=== PATIENT | female | born 1965 | race Caucasian/White ===

== ENCOUNTER 2017-04-03 21:16 | Emergency (ER) | payer OTHER ==
[~2017-04-03] VITALS: Ht 162.6 cm; Wt 86.6 kg
[2017-04-03 21:20] VITALS: BP 134/83
--- NOTE | 2017-04-03 21:28 | NUR ---
Patient ambulated to bed 06.
--- NOTE | 2017-04-03 21:36 | NUR ---
51 Y/O F W/C/O LOWER ABD PAIN X 4 DAYS. PT STATES HAS A HX OF FIBROIDS AND GOT HER GALLBLADDER REMOVED X 1 MTH AGO. NO S/S OF DISTRESS NOTED.
--- NOTE | 2017-04-03 21:42 | NUR ---
Dr. Bose evaluating patient at bedside. PA student at bedside.
[2017-04-03] MEDS ORDERED: KETOROLAC 60 MG/2 ML VIAL IM ONE (21:45)
--- NOTE | 2017-04-03 22:07 | NUR ---
Patient back from XRAY via wheelchair per tech.
--- NOTE | 2017-04-03 22:15 | NUR ---
Patient discharged with v/s stable. Written and verbal after care instructions given and explained. Patient alert, oriented and verbalized understanding of instructions. Ambulatory with steady gait. All questions addressed prior to discharge. ID band removed. Patient advised to follow up with PMD. Rx of MOTRIN 800MG, MIRALAX given. Patient educated on indication of medication including possible reaction and side effects. Opportunity to ask questions provided and answered.
[2017-04-03 23:02] VITALS: BP 132/81
== END 2017-04-03 22:15 | disposition home or self-care (01) ==
LOC: MED 21:16
DX: R10.33 Periumbilical pain (principal); Z88.1 Allergy status to other antibiotic agents; Z90.49 Acquired absence of other specified parts of digestive tract
CPT/HCPCS: 74000; 81002; 81025; 96372; 99283; J1885

== ENCOUNTER 2018-02-26 14:28 | Emergency (ER) | payer OTHER ==
[~2018-02-26] VITALS: Ht 154.9 cm; Wt 73.0 kg
[2018-02-26 14:35] VITALS: BP 123/76
--- NOTE | 2018-02-26 14:37 | NUR ---
ASSUMED CARE OF PT AT THIS TIME. C/O GENERAL BODY ACHES, COUGH AND COLD SYMPTOMS. DENIES N/V/D; SKIN IS PINK/WARM/DRY; AAOX4 WITH EVEN AND STEADY GAIT; LUNGS CLEAR BL; HR EVEN AND REGULAR; PATIENT STATES PAIN OF 8/10 AT THIS TIME; VSS; PATIENT POSITIONED FOR COMFORT; HOB ELEVATED; BEDRAILS UP X2; BED DOWN. ER MD MADE AWARE OF PT STATUS. WILL CONTINUE TO MONITOR.
--- NOTE | 2018-02-26 16:37 | NUR ---
Patient appears to be resting comfortably in bed, arousable to voice. Vital Signs within normal limits. Respirations even and unlabored.
[2018-02-26 17:25] VITALS: BP 140/89
--- NOTE | 2018-02-26 17:26 | NUR ---
Patient discharged with v/s stable. Written and verbal after care instructions given and explained. Patient alert, oriented and verbalized understanding of instructions. Ambulatory with steady gait. All questions addressed prior to discharge. ID band removed. Patient advised to follow up with PMD. Rx of TAMIFLU, PROMETHAZINE given. Patient educated on indication of medication including possible reaction and side effects. Opportunity to ask questions provided and answered.
== END 2018-02-26 17:26 | disposition home or self-care (01) ==
LOC: MED 14:28
DX: J11.1 Influenza due to unidentified influenza virus with other respiratory manifestations (principal); Z88.1 Allergy status to other antibiotic agents
CPT/HCPCS: 36415; 87081; 87804; 99284

== ENCOUNTER 2018-06-28 20:22 | Emergency (ER) | payer OTHER ==
[~2018-06-28] VITALS: Ht 160 cm; Wt 90.4 kg
[2018-06-28 20:25] VITALS: BP 165/96
--- NOTE | 2018-06-28 20:57 | NUR ---
PT PRESENTS TO ED WITH LEFT SIDE CHEST PRESSURE RADIATING TO RIGHT SHOULDER. PT STATES PAIN AT ITS WORST IS 6/10 BUT PAIN IS 3/10 AT THIS TIME. PT STAETS MILD SOB WITH CHEST PAIN. PT STATES PAIN ON EXERTION. PT STATES SHE IS RELAXED AND FEELING BETTER IN ER BED WITH MINIMAL PAIN OF 3/10 AND NO SOB OR DYSPNEA. A&OX4. POSITIONED IN BED FOR COMFORT. SIDE RAILS UP X2. VSS. ER MD AWARE. CONTINUE TO MONITOR.
--- NOTE | 2018-06-28 20:57 | NUR ---
PT AMBUYLATED TO BED 7 WITH VSS.
[2018-06-28] MEDS ORDERED: KETOROLAC 60 MG/2 ML VIAL IM ONE (22:05)
[2018-06-28 23:22] VITALS: BP 130/88
== END 2018-06-28 23:22 | disposition home or self-care (01) ==
LOC: MED 20:22
DX: M79.601 Pain in right arm (principal); R07.89 Other chest pain; Z88.1 Allergy status to other antibiotic agents; Z90.49 Acquired absence of other specified parts of digestive tract
CPT/HCPCS: 93005; 96372; 99283; J1885

== ENCOUNTER 2018-08-22 01:45 | Inpatient (IN) | payer OTHER ==
[~2018-08-22] VITALS: Ht 162.6 cm; Wt 89.8 kg
[2018-08-22 01:45] VITALS: BP 151/67
--- NOTE | 2018-08-22 01:45 | NUR ---
53/F CAME IN W C/O CHEST PAIN, NONRADIATING, SINCE THIS AM. ALSO REPORTS SOB. LUNG SOUNDS CLEAR, 18RR EVEN AND UNLABORED.ABLE TO SPEAK FULL LENGTH WITHOUT DIFFICULTY. HEART SOUNDS REGULAR. DENIES N/V, COUGH. SKIN SIGNS NORMAL. PT STATES " I HAD HYSTERECTOMY ON FRIDAY AND THEY CALLED ME THAT MY EKG CAME BACK ABNORMAL". PMH: HTN, HLD
[2018-08-22] MEDS ORDERED: ASPIRIN 325 MG TAB PO ONE (02:10)
[2018-08-22] MEDS ORDERED: NITROGLYCERIN 0.4 MG TAB SL ONE (02:10)
[2018-08-22 02:59] LABS: ANION GAP 10.3 (8-16); CARBON DIOXIDE 29.3 mmol/L (21-32); POTASSIUM 3.6 mmol/L (3.5-5.1)
[2018-08-22 03:05] LABS: ALBUMIN 3.9 g/dL (3.4-5.0); TOTAL BILIRUBIN 0.2 mg/dL (0.0-1.0)
[2018-08-22 03:08] LABS: CREATINE KINASE MB 0.7 ng/mL (0-3.6)
--- NOTE | 2018-08-22 03:21 | NUR ---
Dr. Iyer evaluating patient at bedside.
[2018-08-22 03:45] LABS: HEMATOCRIT 50.7 % (36-48); HEMOGLOBIN 9.5 g/dL (12.0-16.0); MEAN CORPUSCULAR HEMOGLOBIN 16 pg (27-31); MEAN CORPUSCULAR VOLUME 87.3 fL (80-94); RED BLOOD CELL COUNT(AUTO) 5.81 MIL/uL (4.20-5.40); WHITE BLOOD COUNT (AUTO) 4.3 K/uL (4.8-10.8)
[2018-08-22 03:46] LABS: EOSINOPHILS # (AUTO) 0.1 K/uL (0-0.4); EOSINOPHILS % (AUTO) 2.5 % (0.0-4.0); LYMPHOCYTES # (AUTO) 1.7 K/uL (2.5-16.5); LYMPHOCYTES % (AUTO) 40.4 % (20.5-51.1); MEAN CORPUSCULAR HGB CONC 19 g/dL (33-37); MONOCYTES # (AUTO) 0.4 K/uL (0.8-1.0); MONOCYTES % (AUTO) 9.7 % (1.7-9.3); NEUTROPHILS # (AUTO) 2.1 K/uL (1.8-7.7); NEUTROPHILS % (AUTO) 46.4 % (42.2-75.2); PLATELET COUNT (AUTO) 321 K/uL (140-450); RED CELL DISTRIBUTION WIDTH 11.6 % (11.6-13.7)
--- NOTE | 2018-08-22 04:00 | NUR ---
Patient appears to be resting comfortably in bed. Vital Signs within normal limits. Respirations even and unlabored.
[2018-08-22] MEDS ORDERED: LISI10TA11 PO (04:09)
[2018-08-22] MEDS ORDERED: ASPI81CT89 PO (04:09)
[2018-08-22] MEDS ORDERED: ATOR20TA PO (04:09)
--- NOTE | 2018-08-22 05:59 | NUR ---
Patient will be admitted to [facility]. Admited to TELE. Will go to room 104A. Belongings list completed. Report to YASMIN POSEY.
--- NOTE | 2018-08-22 06:05 | NUR ---
RECD FROM ER VIA ZAK, MONCHO, A/OX4. WITH CHIEF COMPLAINT OF CHEST PAIN. SALINE LOCK AT THE LEFT AC G20, PATENT AND INTACT. VS TAKEN, STABLE. DENIES CHEST PAIN AT THIS TIME, WAS MEDICATED IN ER WITH ASA AND NITROGLYCERIN. MRSA TEST DONE. MADE COMFORTABLE IN BED, ORIENTED TO HOSPITAL SETTING. WILL ENDORSE TO AM NURSE FOR ADMISSION.
[2018-08-22] MEDS ORDERED: KCL 20 MEQ/WATER INJ PREMIX 200 ML IV ONE (07:30)
[2018-08-22] MEDS ORDERED: POTASSIUM CHLORIDE 10 MEQ TABER PO ONE (07:30)
--- NOTE | 2018-08-22 07:30 | NUR ---
RECEIVED PT REPORT FROM MARKETING DEVELOPMENT REPRESENTATIVE RN. PT IS SLEEPING, EASILY AROUSED, OX4. DENIES PAIN AT THIS TIME. IV LEFT AC 18G, PATENT AND INTACT. INTRODUCED SELF, ORIENTED PT TO ROOM. ON TELE MONITORING. WILL CONTINUE TO MONITOR.
[2018-08-22 08:00] VITALS: BP 105/73
--- NOTE | 2018-08-22 08:15 | NUR ---
SPOKE WITH DR CABEZAS, SAID HE WILL SEE THE PT AND REVIEW HER HOME MEDS.
--- NOTE | 2018-08-22 10:40 | NUR ---
URINE SPECIMEN COLLECTED AND SENT TO LAB.
--- NOTE | 2018-08-22 11:23 | NUR ---
PATIENT HAS BEEN SCREENED AND CATEGORIZED MODERATE NUTRITION RISK. PATIENT WILL BE SEEN WITHIN 3-5 DAYS OF ADMISSION. 08/25/18 08/27/18 STORMY MCFARLAND MBA, RD
[2018-08-22 12:00] VITALS: BP 138/87
[2018-08-22 12:20] LABS: BARBITURATE, URINE NEG. ng/ml (NEG <=200); BENZODIAZEPINE, URINE NEG. ng/mL (NEG <=200); CANNABINOID, URINE NEG. ng/mL (NEG <=50); COCAINE, URINE NEG. ng/mL (NEG <=300); OPIATE, URINE NEG. ng/mL (NEG <=2000); PHENCYCLIDINE SCREEN,URINE NEG. ng/mL (NEG <=25)
--- NOTE | 2018-08-22 13:58 | NUR ---
PAGED DR CABEZAS REGARDING HOME MED REVIEW, WAITING FOR CALL BACK.
--- NOTE | 2018-08-22 14:20 | NUR ---
SPOKE WITH DR CABEZAS, WILL REVIEW PT'S MEDICATION.
[2018-08-22 16:00] VITALS: BP 122/75
--- NOTE | 2018-08-22 19:20 | NUR ---
ENDORSED PT TO COMMUNITY HEALTH ADVOCATE RN. PT IN STABLE CONDITION. WAITING TO BE SEEN BY RESTAURANT AND BAR MANAGER.
--- NOTE | 2018-08-22 19:20 | NUR ---
RECEIVED REPORT FROM DAY SHIFT NURSE, LILIAN, AT PT BEDSIDE. PT IN STABLE CONDITION. PT FAMILY IS AT BEDSIDE. PT IS AAOX4. PT IS ON RA. IV ACCESS IN L AC 18G SALINE LOCKED. IV IS PATENT AND INTACT. PT SKIN IS INTACT. PT HAS NO C/O PAIN AT THIS TIME. BED IS LOCKED, LOW POSITION WITH SIDE RAILS UP X2. CALL LIGHT IS WITHIN REACH. BOARD UPDATED. WILL CONTINUE TO MONITOR PT.
[2018-08-22 20:00] VITALS: BP 125/74
[2018-08-22] MEDS ORDERED: amLODIPine 5 MG TAB PO SCH (21:00)
--- NOTE | 2018-08-22 21:53 | NUR ---
APPLIED ORDERED NITRO-BID. EXPLAINED TO PT SOME SIDE EFFECTS OF THE MEDICATION INCLUDING RAWLS AND DIZZINESS. TOLD PT TO LET ME KNOW IF SHE EXPERIENCES ANY RAWLS OR DIZZINESS AND IF SHE NEEDS TO GET UP TO USE THE RESTROOM TO USE HER CALL LIGHT AND TO LET ME KNOW. PT VERBALIZED UNDERSTANDING. WILL CONTINUE TO MONITOR PT. Addendum: 08/22/18 at 2156 by Lenka Miller RN PER DR BOYER, WILL HOLD NORVASC AT THIS TIME. WANTS TO SEE IF NITRO-BID WORKS FIRST. IF NITRO-BID CAUSES PT RAWLS ORDERED TO ADMINISTER NORVASC AND REMOVE NITRO-BID.
[2018-08-22] MEDS ORDERED: NITROGLYCERIN 2% 1 GM PKT TP SCH (22:00)
--- NOTE | 2018-08-22 22:00 | NUR ---
ASSISTED PT UP TO BATHROOM. PT TOLERATED WELL. PT NOW BACK IN BED. ALL OTHER NEEDS ARE MET AT THIS TIME.
--- NOTE | 2018-08-22 23:00 | NUR ---
PT TOLERATED NITRO BID WELL. NO COMPLAINTS OF CHEST PAIN, HEADACHE OR DIZZINESS. PER MD REQUEST, NORVASC NON ADMINISTERED. WILL CONTINUE TO MONITOR PT.
[2018-08-23] VITALS: BP 108/69
--- NOTE | 2018-08-23 00:03 | NUR ---
PT VS WITHIN NORMAL LIMITS. ASSISTED PT UP TO RESTROOM. PT NOW BACK IN BED WITH NO SIGNS OR SYMPTOMS OF DISTRESS. CALL LIGHT IS WITHIN REACH. BED ALARM ON. PT AGREED TO CALL NEXT TIME BATHROOM ASSISTANCE IS NEEDED. WILL CONTINUE TO MONITOR PT.
--- NOTE | 2018-08-23 00:31 | NUR ---
SCHEDULED NITRO-BID NOT ADMINISTERED D/T TOO CLOSE TO PREVIOUS DOSE GIVEN. PT HAS NO C/O OF CHEST PAIN AT THIS TIME. NO SIGNS OR SYMPTOMS OF DISTRESS. WILL CONTINUE TO MONITOR.
--- NOTE | 2018-08-23 02:35 | NUR ---
PT ASLEEP IN BED. NO SIGNS OR SYMPTOMS OF DISTRESS. WILL CONTINUE TO MONITOR.
[2018-08-23 04:00] VITALS: BP 121/87
--- NOTE | 2018-08-23 04:19 | NUR ---
PT C/O HEADACHE. PAGED MD FOR ORDERS.
[2018-08-23] MEDS ORDERED: ACETAMINOPHEN 325 MG TAB PO PRN (05:05)
[2018-08-23] MEDS: NITROGLYCERIN 2% 1 GM PKT TP SCH ×4 (05:28→18:00)
--- NOTE | 2018-08-23 05:28 | NUR ---
PT C/O HEADACHE. TYLENOL GIVEN. NITRO-BID NOT ADMINISTERED D/T PT HEADACHE. PT HAS NO C/O CHEST PAIN AT THIS TIME. ASSISTED PT UP TO REST ROOM. PT NOW BACK IN BED. PT TOLERATED WELL. ALL NEEDS ARE MET. WILL CONTINUE TO MONITOR PT.
--- NOTE | 2018-08-23 07:25 | NUR ---
RECEIVED REPORT FROM HYBRID CAR MECHANIC NURSE AT PT BEDSIDE. PT IS AAOX4. NO S/S OF ACUTE DISTRESS ON RA. DENIES ANY PAIN AT THIS TIME. IV ACCESS IN L AC 18G, SL, PATENT AND INTACT. PT SKIN IS INTACT. PT HAS NO C/O PAIN AT THIS TIME. BED IS LOCKED AND LOWEST POSITION CALL LIGHT IS WITHIN REACH. BOARD UPDATED. WILL CONTINUE TO MONITOR.
--- NOTE | 2018-08-23 07:30 | NUR ---
ENDORSED PT TO DAY SHIFT NURSE FOR CONTINUITY OF CARE. PT IN STABLE CONDITION.
[2018-08-23 08:00] VITALS: BP 117/68
[2018-08-23] MEDS ORDERED: ATORVASTATIN 20 MG TAB PO SCH (09:00)
[2018-08-23] MEDS ORDERED: AMLO5TAB4 PO (10:05)
[2018-08-23 12:00] VITALS: BP 122/77
--- NOTE | 2018-08-23 12:55 | NUR ---
PT STATED CHEST PAIN COMES AND GOES, FEELS LIKE SQUEEZING, 2/10 AT THIS TIME. NITROGLYCERIN PATCHY GIVEN. MADE PT AWARE THAT HEADACHE IS A MAJOR SIDE EFFECTS OF THE MEDICATION, USE CALL LIGHT IF SHE EXPERIENCING BAD HEADACHE.
--- NOTE | 2018-08-23 13:22 | NUR ---
DR ESPAÑA CALLED, SHE SAID SHE WILL COME TO SEE THE PT IN ONE HR.
[2018-08-23] MEDS ORDERED: PANT40EC PO (14:25)
[2018-08-23] MEDS ORDERED: IBUP-2213 PO (14:25)
[2018-08-23 16:00] VITALS: BP 129/83
--- NOTE | 2018-08-23 19:10 | NUR ---
RECEIVED REPORT FROM DAY SHIFT NURSE, LILIAN, AT PT BEDSIDE. PT IN STABLE CONDITION. PT FAMILY IS AT BEDSIDE. DR. BOYER JUST FINISHED SPEAKING WITH PT. PT IS AAOX4. PT IS ON RA. IV ACCESS IN L AC 18G SALINE LOCKED. IV IS PATENT AND INTACT. PT SKIN IS INTACT. PT HAS NO C/O 3/10 PAIN IN BACK OF HEAD, HEADACHE. PER DR. BOYER REQUEST NITRO-BID REMOVED BY DAY SHIFT NURSE. BED IS LOCKED, LOW POSITION WITH SIDE RAILS UP X2. CALL LIGHT IS WITHIN REACH. BOARD UPDATED. WILL CONTINUE TO MONITOR PT.
--- NOTE | 2018-08-23 19:10 | NUR ---
ENDORSED PT TO FOOD PRODUCTION MANAGER RN. PT IN STABLE CONDITION.
[2018-08-23] MEDS ORDERED: COL.6 GT (19:40)
[2018-08-23 20:00] VITALS: BP 144/90
--- NOTE | 2018-08-23 20:35 | NUR ---
PT DISCHARGED FROM UNIT. PT ASSISTED OFF UNIT AND TO CAR VIA WHEELCHAIR. PT IN STABLE CONDITION. PT HAS DISCHARGE PAPERWORK AND ALL BELONGINGS WITH HER. DISCHARGE PAPERWORK WAS REVIEWED AND SIGNED. PT VERBALIZED UNDERSTANDING TO DISCHARGE INSTRUCTIONS.
--- NOTE | 2018-08-24 08:11 | NUR ---
RETRO FAXED ER REPORT, H&P, CONSULT TO [facility] [phone] NO DISCHARGE SUMMARY.
--- NOTE | 2018-08-25 07:29 | NUR ---
DISCHARGE SUMMARY FAXED TO [facility] [phone]
== END 2018-08-23 20:35 | disposition home or self-care (01) | DRG 207 ==
LOC: MED 01:45 → MTU 05:30
PROVIDERS: ADMIT Hospitalist; ATTEND Hospitalist
DX: I30.9 Acute pericarditis, unspecified (principal); E66.01 Morbid (severe) obesity due to excess calories; E78.5 Hyperlipidemia, unspecified; I10 Essential (primary) hypertension; Z68.34 Body mass index [BMI] 34.0-34.9, adult; Z90.49 Acquired absence of other specified parts of digestive tract; Z88.1 Allergy status to other antibiotic agents
CPT/HCPCS: 36415; 71045; 80053; 80305; 82550; 82553; 83690; 84484; 85025; 87081; 99285; Q0092

== ENCOUNTER 2019-04-26 23:25 | Emergency (ER) | payer OTHER ==
[~2019-04-26] VITALS: Ht 162.6 cm; Wt 86.2 kg
[~2019-04-26 23:25] MED LIST: AMLO5TAB6 PO; ASPI-1718 PO; ATOR20TA PO; COL.6 GT; IBUP-2213 PO; PANT40EC PO
[2019-04-26 23:37] VITALS: BP 143/90
--- NOTE | 2019-04-26 23:40 | NUR ---
TO LOBBY A/W BED AMBULATORY
--- NOTE | 2019-04-27 01:12 | NUR ---
PT TO ER BED 2.
--- NOTE | 2019-04-27 01:12 | NUR ---
PATIENT PRESENTS TO ED WITH C/O SOB AND COUGH. PT STATES SHE HAS BEEN FEELING SOB ON AND OFF FOR ABOUT 1 MONTH. DENIES N/V/D; SKIN IS PINK/WARM/DRY; AAOX4 WITH EVEN AND STEADY GAIT; EXPIRATORY WHEEZING TO BL UPPER LOBES. PATIENT STATES PAIN OF 0/10 AT THIS TIME; VSS; PATIENT POSITIONED FOR COMFORT; HOB ELEVATED; BEDRAILS UP X2; BED DOWN. ER MD MADE AWARE OF PT STATUS.
--- NOTE | 2019-04-27 02:55 | NUR ---
DR ALVARENGA EXAMINING PATIENT AT THIS TIME.
[2019-04-27] MEDS ORDERED: ALBUTEROL SULFATE/IPRATROPIU 3 ML SOL IH ONE (03:00)
[2019-04-27] MEDS ORDERED: predniSONE 20 MG TAB PO ONE (03:00)
[2019-04-27] MEDS ORDERED: ALBUTEROL 0.083% 2.5 MG/3 ML NEBU INH ONE (03:00)
[2019-04-27] MEDS ORDERED: KETOROLAC 60 MG/2 ML VIAL IM ONE (03:00)
--- NOTE | 2019-04-27 03:23 | NUR ---
RT AT BEDSIDE.
[2019-04-27 04:16] VITALS: BP 131/85
--- NOTE | 2019-04-27 04:16 | NUR ---
Patient discharged with v/s stable. Written and verbal after care instructions given and explained. Patient alert, oriented and verbalized understanding of instructions. Ambulatory with steady gait. All questions addressed prior to discharge. ID band removed. Patient advised to follow up with PMD. Rx of MOTRIN 800MG, PREDNISONE 20MG, ALBUTEROL INHALER given. Patient educated on indication of medication including possible reaction and side effects. Opportunity to ask questions provided and answered.
== END 2019-04-27 04:16 | disposition home or self-care (01) ==
LOC: MED 23:25
DX: R05 Cough (principal); R06.02 Shortness of breath; M54.5 Low back pain; I10 Essential (primary) hypertension; E78.5 Hyperlipidemia, unspecified; Z90.49 Acquired absence of other specified parts of digestive tract; Z79.82 Long term (current) use of aspirin; Z79.899 Other long term (current) drug therapy; Z88.1 Allergy status to other antibiotic agents; Z90.710 Acquired absence of both cervix and uterus
CPT/HCPCS: 71045; 81002; 94640; 94760; 96372; 99283; J1885; J7512; J7613; J7620; Q0092

== ENCOUNTER 2019-06-09 01:49 | Emergency (ER) | payer OTHER ==
[~2019-06-09] VITALS: Ht 162.6 cm; Wt 89.8 kg
[2019-06-09 01:55] VITALS: BP 129/81
--- NOTE | 2019-06-09 01:55 | NUR ---
54/F PRESENTS TO ED, C/O ANAL PAIN, X4 DAYS. REPORTS CONSTIPATION X2 WEEKS. LBM YESTERDAY, REPORTS HARD STOOL. PT WITH HEMORRHOIDS, DENIES BLEEDING. PT AWAKE AND ALERT, SKIN NORMAL WARM AND DRY, RR EVEN AND UNLABORED. HX HEMORRHOIDS, HTN, HLD, HYSTERECTOMY RX ATORVASTATIN, HTN MEDS, ASPIRIN OTC TYLENOL, HEMORRHOID CREAM WITHOUT RELIEF.
[2019-06-09] MEDS ORDERED: KETOROLAC 60 MG/2 ML VIAL IM ONE (02:15)
[2019-06-09 02:43] VITALS: BP 129/81
--- NOTE | 2019-06-09 02:43 | NUR ---
Patient discharged with v/s stable. Written and verbal after care instructions given and explained. Patient alert, oriented and verbalized understanding of instructions. Ambulatory with steady gait. All questions addressed prior to discharge. ID band removed. Patient advised to follow up with PMD. Rx of MOTRIN, ANUSOL CREAM, MIRALAX given. Patient educated on indication of medication including possible reaction and side effects. Opportunity to ask questions provided and answered.
== END 2019-06-09 02:43 | disposition home or self-care (01) ==
LOC: MED 01:49
DX: K64.9 Unspecified hemorrhoids (principal); K59.00 Constipation, unspecified; I10 Essential (primary) hypertension; E78.00 Pure hypercholesterolemia, unspecified; Z88.1 Allergy status to other antibiotic agents; Z79.899 Other long term (current) drug therapy; Z79.82 Long term (current) use of aspirin; Z79.1 Long term (current) use of non-steroidal anti-inflammatories (NSAID); Z90.49 Acquired absence of other specified parts of digestive tract; Z90.710 Acquired absence of both cervix and uterus
CPT/HCPCS: 96372; 99283; J1885

== ENCOUNTER 2022-09-26 00:55 | Emergency (ER) | payer OTHER ==
[~2022-09-26] VITALS: Ht 162.6 cm; Wt 83.9 kg
[~2022-09-26 00:55] MED LIST changes: +AMLO-3 PO; -AMLO5TAB6 PO; -ASPI-1718 PO; +ASPI-1822 PO; -COL.6 GT; +COLC-30 GT
[2022-09-26 01:02] VITALS: BP 143/90
--- NOTE | 2022-09-26 01:06 | NUR ---
pt to lobby
[2022-09-26] MEDS ORDERED: ASPIRIN 325 MG TAB PO ONE (01:35)
--- NOTE | 2022-09-26 01:45 | NUR ---
PT TO XR
[2022-09-26 02:16] LABS: BASOPHILS # (AUTO) 0.1 K/uL (0.00-0.22); EOSINOPHILS # (AUTO) 0.1 K/uL (0-0.4); EOSINOPHILS % (AUTO) 2.5 % (0.0-4.0); HEMATOCRIT 36.5 % (36-48); HEMOGLOBIN 12.3 g/dL (12.0-16.0); LYMPHOCYTES # (AUTO) 2.1 K/uL (2.5-16.5); LYMPHOCYTES % (AUTO) 37.5 % (20.5-51.1); MEAN CORPUSCULAR HEMOGLOBIN 29 pg (27-31); MEAN CORPUSCULAR HGB CONC 34 g/dL (33-37); MEAN CORPUSCULAR VOLUME 85.6 fL (80-94); MONOCYTES # (AUTO) 0.5 K/uL (0.8-1.0); MONOCYTES % (AUTO) 9.1 % (1.7-9.3); NEUTROPHILS # (AUTO) 2.8 K/uL (1.8-7.7); NEUTROPHILS % (AUTO) 49.9 % (42.2-75.2); PLATELET COUNT (AUTO) 261 K/uL (140-450); RED BLOOD CELL COUNT(AUTO) 4.26 MIL/uL (4.20-5.40); RED CELL DISTRIBUTION WIDTH 13.1 % (11.6-13.7); WHITE BLOOD COUNT (AUTO) 5.5 K/uL (4.8-10.8)
[2022-09-26 02:49] LABS: ASPARTATE AMINOTRANSFERASE 25 U/L (15-37); CARBON DIOXIDE 31.9 mmol/L (21-32); CHLORIDE 103 mmol/L (98-107); CREATININE 0.8 mg/dL (0.6-1.3); GFR ARICAN-AMERICAN 95 mL/min (>90); GLUCOSE 93 mg/dL (74-106); POTASSIUM 3.9 mmol/L (3.5-5.1); SODIUM SERUM 143 mmol/L (136-145); TOTAL BILIRUBIN 0.3 mg/dL (0.0-1.0); UREA NITROGEN, BLOOD 17 mg/dL (7-18)
--- NOTE | 2022-09-26 04:29 | NUR ---
Patient appears to be resting comfortably in bed. Vital Signs within normal limits. Respirations even and unlabored.
[2022-09-26] MEDS ORDERED: ACETAMINOPHEN EXTRA STRENGTH 500 MG TAB PO ONE (04:45)
--- NOTE | 2022-09-26 06:31 | NUR ---
PT RESTING IN BED. PAIN LEVEL AT 5/10 AFTER MEDS . RESP EVEN AND UNLABORED. PT IS A&OX4.
[2022-09-26] MEDS ORDERED: predniSONE 20 MG TAB PO ONE (07:00)
[2022-09-26] MEDS ORDERED: ALBUTEROL SULFATE/IPRATROPIU 3 ML SOL IH ONE (07:00)
[2022-09-26] MEDS ORDERED: TRAM-748 PO (07:03)
[2022-09-26] MEDS ORDERED: PRED50TA2 PO (07:03)
--- NOTE | 2022-09-26 07:20 | NUR ---
Received report from CHRISTINE Wilson. Assumed care at this time.
[2022-09-26] MEDS ORDERED: ATI.5 PO (07:28)
--- NOTE | 2022-09-26 08:20 | NUR ---
IV removed, catheter intact and site benign. Applied folded 4x4 gauze and tape to stop bleeding.
[2022-09-26 08:24] VITALS: BP 142/78
--- NOTE | 2022-09-26 08:24 | NUR ---
Patient discharged with v/s stable. Written and verbal after care instructions given and explained. Patient alert, oriented and verbalized understanding of instructions. Ambulatory with steady gait. All questions addressed prior to discharge. ID band removed. Patient advised to follow up with PMD. Rx of Prednisone and Tramadol given. Patient educated on indication of medication including possible reaction and side effects. Opportunity to ask questions provided and answered.
== END 2022-09-26 08:24 | disposition home or self-care (01) ==
LOC: MED 00:55
DX: R07.89 Other chest pain (principal); Z20.822 Contact with and (suspected) exposure to COVID-19; R06.02 Shortness of breath; I10 Essential (primary) hypertension; E78.5 Hyperlipidemia, unspecified; Z79.899 Other long term (current) drug therapy; Z88.1 Allergy status to other antibiotic agents; Z79.82 Long term (current) use of aspirin
CPT/HCPCS: 36415; 71045; 71275; 80053; 84484; 85025; 85379; 87426; 87804; 93005; 94640; 94760; 99285; J7512; Q9967

== ENCOUNTER 2023-02-25 08:46 | Emergency (ER) | payer OTHER ==
[~2023-02-25] VITALS: Ht 162.6 cm; Wt 83.9 kg
[~2023-02-25 08:46] MED LIST changes: +ACET-8905 PO; +ATI.5 PO; +CARB15DR61 OT; +KETO5SOL OP; +LORA10TA60 PO; +NAPR-54 PO; +OFLO5SOL27 RIGHT EAR; +POLY10SO OP; +PRED50TA2 PO; +TRAM-748 PO
--- NOTE | 2023-02-25 09:03 | NUR ---
na for triage
--- NOTE | 2023-02-25 09:05 | NUR ---
PT. AMBULATED TO BED 03
[2023-02-25 09:10] VITALS: BP 145/94
--- NOTE | 2023-02-25 09:30 | NUR ---
57YO FEMALE PT C/O TIGHT/HEAVY CHEST PAIN AND SOB [id number]. REPORT SUDDEN ONSET ALONG W/ NAUSEA AND DIZZINESS. RADIATION TO NECK. PAIN AT MOST WHEN LAYING DOWN. ALSO C/O DYSURIA AND URGENCY. DENIES HEMUTURIA , BACK PAIN , V/D, FEVER, CHILLS OR PREVIOUS S/S. PT AAOX4, ON INK TECHNICIAN. HX: ASTHMA, HTN, HLD ALLERGIES: TETRACYCLINE
--- NOTE | 2023-02-25 09:36 | NUR ---
MD DE ANDA AT BEDSIDE FOR EVALUATION
[2023-02-25] MEDS ORDERED: KETOROLAC 30 MG/ML VIAL IM ONE (09:45)
[2023-02-25] MEDS ORDERED: ONDANSETRON 4 MG ODT PO ONE (09:45)
[2023-02-25] MEDS ORDERED: FAMOTIDINE 20 MG TAB PO ONE (09:45)
--- NOTE | 2023-02-25 09:50 | NUR ---
pt swabbed for covid(nichelle) and flu. handed to lab
--- NOTE | 2023-02-25 09:50 | NUR ---
lab at bedside
[2023-02-25 09:58] LABS: BASOPHILS % (AUTO) 0.8 % (0.0-2.0); EOSINOPHILS # (AUTO) 0.1 K/uL (0-0.4); HEMATOCRIT 36.1 % (36-48); HEMOGLOBIN 12.3 g/dL (12.0-16.0); LYMPHOCYTES # (AUTO) 1.7 K/uL (2.5-16.5); LYMPHOCYTES % (AUTO) 33.5 % (20.5-51.1); MEAN CORPUSCULAR HEMOGLOBIN 29 pg (27-31); MEAN CORPUSCULAR HGB CONC 34 g/dL (33-37); MEAN CORPUSCULAR VOLUME 84.2 fL (80-94); MONOCYTES # (AUTO) 0.5 K/uL (0.8-1.0); MONOCYTES % (AUTO) 9.4 % (1.7-9.3); NEUTROPHILS # (AUTO) 2.7 K/uL (1.8-7.7); NEUTROPHILS % (AUTO) 54.3 % (42.2-75.2); PLATELET COUNT (AUTO) 232 K/uL (140-450); RED BLOOD CELL COUNT(AUTO) 4.28 MIL/uL (4.20-5.40); RED CELL DISTRIBUTION WIDTH 12.7 % (11.6-13.7)
--- NOTE | 2023-02-25 10:11 | NUR ---
xray at bedside
[2023-02-25 10:23] LABS: ALBUMIN 3.9 g/dL (3.4-5.0); ANION GAP 11.3 (8-16); CARBON DIOXIDE 28.2 mmol/L (21-32); CREATININE 0.9 mg/dL (0.6-1.3); POTASSIUM 3.5 mmol/L (3.5-5.1); TOTAL BILIRUBIN 0.5 mg/dL (0.0-1.0)
--- NOTE | 2023-02-25 11:46 | NUR ---
PT W/ INCREASED CHEST TIGHTNESS. MADE AWARE
[2023-02-25] MEDS ORDERED: FAMO-92 PO (12:40)
[2023-02-25] MEDS ORDERED: PRED20TA5 PO (12:40)
[2023-02-25] MEDS ORDERED: ONDA-188 PO (12:40)
--- NOTE | 2023-02-25 12:50 | NUR ---
ATTEMPTED TO D/C PT. PT REQUESTING BREATHING TREATMENT. DR DE ANDA MADE AWARE
[2023-02-25] MEDS ORDERED: ALBUTEROL 0.083% 2.5 MG/3 ML NEBU INH ONE (12:55)
[2023-02-25] MEDS ORDERED: IPRATROPIUM 0.02% 0.5 MG/2.5 ML NEBU INH ONE (12:55)
[2023-02-25 13:29] VITALS: BP 130/78
--- NOTE | 2023-02-25 13:29 | NUR ---
Patient discharged with v/s stable. Written and verbal after care instructions FOR NON SPECIFIC CHEST PAIN ANS ASTHMA given and explained. Patient alert, oriented and verbalized understanding of instructions. Ambulatory with steady gait. All questions addressed prior to discharge. ID band removed. Patient advised to follow up with PMD. Rx of PEPCID, ZOFRAN ODT AND PREDNISONE given. Opportunity to ask questions provided and answered.
== END 2023-02-25 13:29 | disposition home or self-care (01) ==
LOC: MED 08:46
DX: R07.89 Other chest pain (principal); Z20.822 Contact with and (suspected) exposure to COVID-19; I10 Essential (primary) hypertension; E78.5 Hyperlipidemia, unspecified; J45.909 Unspecified asthma, uncomplicated; Z88.1 Allergy status to other antibiotic agents; Z79.899 Other long term (current) drug therapy; Z90.49 Acquired absence of other specified parts of digestive tract; Z90.710 Acquired absence of both cervix and uterus
CPT/HCPCS: 36415; 71045; 80053; 81025; 83690; 83880; 84484; 85025; 87426; 87804; 93005; 94640; 94760; 96372; 99285; J1885; J7613; J7644; Q0092; Q0162

== ENCOUNTER 2023-10-05 08:36 | Emergency (ER) | payer OTHER ==
[~2023-10-05] VITALS: Ht 162.6 cm; Wt 85.8 kg
[~2023-10-05 08:36] MED LIST changes: +FAMO-92 PO; +ONDA-188 PO; +PRED20TA5 PO
[2023-10-05 08:53] VITALS: BP 142/92; PULSE 107; RESP 20; TEMP 98.4; O2SAT 95
[2023-10-05 09:12] VITALS: O2SAT 96
[2023-10-05] MEDS ORDERED: KETOROLAC 30 MG/ML VIAL IVP ONE (09:15)
[2023-10-05] MEDS ORDERED: predniSONE 20 MG TAB PO ONE (09:15)
[2023-10-05] MEDS ORDERED: NACL 0.9% 1,000 ML IV ONE (09:15)
[2023-10-05] MEDS ORDERED: ALBUTEROL SULFATE/IPRATROPIU 3 ML SOL IH ONE (09:15)
[2023-10-05 09:26] VITALS: PULSE 90; PULSE 96; RESP 18; RESP 21; O2SAT 98
[2023-10-05 09:30] LABS: BASOPHILS % (AUTO) 0.8 % (0.0-2.0); EOSINOPHILS # (AUTO) 0.1 K/uL (0-0.4); EOSINOPHILS % (AUTO) 2.3 % (0.0-4.0); HEMATOCRIT 36.1 % (36-48); HEMOGLOBIN 12.2 g/dL (12.0-16.0); LYMPHOCYTES # (AUTO) 1.5 K/uL (2.5-16.5); MEAN CORPUSCULAR HEMOGLOBIN 28 pg (27-31); MEAN CORPUSCULAR HGB CONC 34 g/dL (33-37); MEAN CORPUSCULAR VOLUME 83.9 fL (80-94); MONOCYTES # (AUTO) 0.9 K/uL (0.8-1.0); MONOCYTES % (AUTO) 15.4 % (1.7-9.3); NEUTROPHILS # (AUTO) 3.3 K/uL (1.8-7.7); NEUTROPHILS % (AUTO) 56.5 % (42.2-75.2); PLATELET COUNT (AUTO) 232 K/uL (140-450); RED BLOOD CELL COUNT(AUTO) 4.31 MIL/uL (4.20-5.40); RED CELL DISTRIBUTION WIDTH 13.4 % (11.6-13.7); WHITE BLOOD COUNT (AUTO) 5.9 K/uL (4.8-10.8)
[2023-10-05 09:44] LABS: CALCIUM 8.6 mg/dL (8.5-10.1); CARBON DIOXIDE 25.5 mmol/L (21-32); CREATININE 0.9 mg/dL (0.6-1.3); POTASSIUM 3.5 mmol/L (3.5-5.1)
[2023-10-05 10:27] LABS: FLU A ANTIGEN negative (NEGATIVE); FLU B ANTIGEN negative (NEGATIVE)
[2023-10-05 11:04] LABS: APPEARANCE,URINE CLEAR (CLEAR); BILIRUBIN,URINE NEGATIVE (NEGATIVE); BLOOD, URINE 1+ (NEGATIVE); COLOR,URINE YELLOW (YELLOW); LEUKOCYTE ESTERASE ,URINE NEGATIVE (NEGATIVE); NITRITE, URINE NEGATIVE (NEGATIVE); PROTEIN,URINE NEGATIVE (NEGATIVE); UGLUCOSE NEGATIVE (NEGATIVE); UROBILINOGEN,URINE 0.2 EU/dL (0.2 - 1)
[2023-10-05 11:16] LABS: BACTERIA,URINE FEW /HPF (None Seen); RBC,URINE 0-5 /HPF (0-5); SQUAMOUS EPITHELIAL CELL,UR 0-3 (FEW) /LPF (0-3 (FEW)); WBC,URINE 0-5 /HPF (0-5)
[2023-10-05] MEDS ORDERED: NAPR-54 PO (11:33)
[2023-10-05] MEDS ORDERED: AZIT250T4 PO (11:33)
[2023-10-05] MEDS ORDERED: PRED20TA5 PO (11:33)
[2023-10-05] MEDS ORDERED: CYCL-711 PO (11:33)
[2023-10-05 12:06] VITALS: BP 105/59; PULSE 96; RESP 20; O2SAT 95
== END 2023-10-05 12:06 | disposition home or self-care (01) ==
LOC: MED 08:36
DX: S33.5XXA Sprain of ligaments of lumbar spine, initial encounter (principal); J20.9 Acute bronchitis, unspecified; J45.909 Unspecified asthma, uncomplicated; Z20.822 Contact with and (suspected) exposure to COVID-19; E78.5 Hyperlipidemia, unspecified; I10 Essential (primary) hypertension; Z79.899 Other long term (current) drug therapy; Z79.1 Long term (current) use of non-steroidal anti-inflammatories (NSAID); Z79.82 Long term (current) use of aspirin; Z88.1 Allergy status to other antibiotic agents; X58.XXXA Exposure to other specified factors, initial encounter; Y92.89 Other specified places as the place of occurrence of the external cause; Y93.89 Activity, other specified; Y99.8 Other external cause status
CPT/HCPCS: 36415; 71045; 72110; 80048; 81001; 83880; 84484; 85025; 87426; 87804; 93005; 94640; 96361; 96374; 99285; J1885; J7030; J7512

== ENCOUNTER 2023-10-27 04:05 | Emergency (ER) | payer OTHER ==
[~2023-10-27] VITALS: Ht 162.6 cm; Wt 83.9 kg
[~2023-10-27 04:05] MED LIST changes: +AZIT250T4 PO; +CYCL-711 PO
[2023-10-27 04:20] VITALS: BP 138/86; PULSE 83; RESP 17; TEMP 98; O2SAT 99
[2023-10-27 07:14] LABS: BASOPHILS % (AUTO) 0.8 % (0.0-2.0); EOSINOPHILS # (AUTO) 0.2 K/uL (0-0.4); EOSINOPHILS % (AUTO) 3.9 % (0.0-4.0); HEMATOCRIT 33.9 % (36-48); HEMOGLOBIN 11.5 g/dL (12.0-16.0); LYMPHOCYTES # (AUTO) 1.5 K/uL (2.5-16.5); LYMPHOCYTES % (AUTO) 32.8 % (20.5-51.1); MEAN CORPUSCULAR HEMOGLOBIN 29 pg (27-31); MEAN CORPUSCULAR HGB CONC 34 g/dL (33-37); MONOCYTES # (AUTO) 0.6 K/uL (0.8-1.0); MONOCYTES % (AUTO) 12.2 % (1.7-9.3); NEUTROPHILS # (AUTO) 2.3 K/uL (1.8-7.7); NEUTROPHILS % (AUTO) 50.3 % (42.2-75.2); PLATELET COUNT (AUTO) 247 K/uL (140-450); RED BLOOD CELL COUNT(AUTO) 4.04 MIL/uL (4.20-5.40); RED CELL DISTRIBUTION WIDTH 13.2 % (11.6-13.7); WHITE BLOOD COUNT (AUTO) 4.7 K/uL (4.8-10.8)
[2023-10-27 07:38] LABS: ANION GAP 12.2 (8-16); CALCIUM 8.6 mg/dL (8.5-10.1); CARBON DIOXIDE 27.6 mmol/L (21-32); CREATININE 0.8 mg/dL (0.6-1.3); POTASSIUM 3.8 mmol/L (3.5-5.1)
[2023-10-27] MEDS ORDERED: MECL-303 PO (08:55)
[2023-10-27 09:53] VITALS: BP 122/75; PULSE 73; RESP 17; TEMP 98; O2SAT 97
== END 2023-10-27 09:53 | disposition home or self-care (01) ==
LOC: MED 04:05
DX: R42 Dizziness and giddiness (principal); R07.9 Chest pain, unspecified; R51.9 Headache, unspecified; I11.9 Hypertensive heart disease without heart failure; J45.909 Unspecified asthma, uncomplicated; Z88.8 Allergy status to other drugs, medicaments and biological substances; Z79.899 Other long term (current) drug therapy
CPT/HCPCS: 36415; 71045; 80048; 84484; 85025; 93005; 99285; Q0092

== ENCOUNTER 2024-08-03 07:43 | Emergency (ER) | payer OTHER ==
[~2024-08-03] VITALS: Ht 162.6 cm; Wt 90.3 kg
[~2024-08-03 07:43] MED LIST changes: +MECL-303 PO; +NAPR-337 PO; -NAPR-54 PO
[2024-08-03 07:59] VITALS: BP 143/86; PULSE 91; RESP 20; TEMP 97; O2SAT 96
[2024-08-03 08:30] VITALS: O2SAT 96
[2024-08-03] MEDS: predniSONE 20 MG TAB PO ONE (08:57)
[2024-08-03 09:00] LABS: FLU A ANTIGEN negative (NEGATIVE); FLU B ANTIGEN NEGATIVE (NEGATIVE)
[2024-08-03 09:43] VITALS: PULSE 92; RESP 16; O2SAT 96
[2024-08-03] MEDS: IPRATROPIUM 0.02% 0.5 MG/2.5 ML NEBU INH ONE ×2 (09:43→11:33)
[2024-08-03] MEDS: ALBUTEROL 0.083% 2.5 MG/3 ML NEBU INH ONE ×2 (09:43→11:33)
[2024-08-03 10:18] LABS: BILIRUBIN,URINE NEGATIVE (NEGATIVE); COLOR,URINE YELLOW (YELLOW); LEUKOCYTE ESTERASE ,URINE NEGATIVE (NEGATIVE); NITRITE, URINE NEGATIVE (NEGATIVE); PROTEIN,URINE NEGATIVE (NEGATIVE); UGLUCOSE NEGATIVE (NEGATIVE); UROBILINOGEN,URINE 0.2 EU/dL (0.2 - 1)
[2024-08-03 10:30] VITALS: BP 113/63; TEMP 97.9
[2024-08-03 10:34] LABS: APPEARANCE,URINE SLIGHTLY HAZY (CLEAR)
[2024-08-03 10:43] LABS: BACTERIA,URINE OCCASSIONAL /HPF (None Seen); RBC,URINE 0-5 /HPF (0-5); SQUAMOUS EPITHELIAL CELL,UR 0-3 (FEW) /LPF (0-3 (FEW)); WBC,URINE 0-5 /HPF (0-5)
[2024-08-03 10:44] LABS: BLOOD, URINE 1+ (NEGATIVE)
[2024-08-03 10:45] VITALS: O2SAT 96
[2024-08-03 11:33] VITALS: PULSE 90; RESP 14; O2SAT 98
[2024-08-03] MEDS ORDERED: AZIT250T3 PO (12:56)
[2024-08-03] MEDS ORDERED: PRED20TA5 PO (12:56)
[2024-08-03] MEDS: ACETAMINOPHEN EXTRA STRENGTH 500 MG TAB PO ONE (13:06)
== END 2024-08-03 13:30 | disposition home or self-care (01) ==
LOC: MED 07:43
DX: J45.901 Unspecified asthma with (acute) exacerbation (principal); J20.9 Acute bronchitis, unspecified; Z20.822 Contact with and (suspected) exposure to COVID-19; E78.5 Hyperlipidemia, unspecified; I10 Essential (primary) hypertension; Z79.899 Other long term (current) drug therapy; Z79.82 Long term (current) use of aspirin; Z88.1 Allergy status to other antibiotic agents
CPT/HCPCS: 71045; 81001; 87426; 87804; 94640; 99285; J7512; J7613; J7644